=== PATIENT | female | born 1965 | race Caucasian/White ===

== ENCOUNTER 2018-12-08 07:29 | Emergency (ER) | payer MEDICAID ==
[~2018-12-08] VITALS: Ht 157.5 cm; Wt 67.6 kg
[2018-12-08 07:33] VITALS: Ht 157.5 cm; Wt 67.6 kg
[2018-12-08 08:26] LABS: BASOPHIL % 0.2 % (0-2); PLATELET COUNT 310 x10^3mcL (130-400); RED CELL DISTRIBUTION WIDTH 12.7 % (11.5-14.5)
[2018-12-08 08:44] LABS: CALCIUM 9.1 mg/dL (8.5-10.1); CARBON DIOXIDE 26.2 mmol/L (21-32); CHLORIDE SERUM 104 mmol/L (98-107); CREATININE SERUM 0.6 mg/dL (0.6-1.0); GFR1 > 60 mL/min; GLUCOSE SERUM 123 mg/dL (74-106); POTASSIUM SERUM 3.3 mmol/L (3.5-5.1); SODIUM SERUM 141 mmol/L (136-145)
[2018-12-08 08:50] LABS: microscopic required? YES; urine erythrocyte 2+ (NEGATIVE)
[2018-12-08 08:52] LABS: ALBUMIN 3.7 g/dL (3.4-5.0); ALKALINE PHOSPHATASE 139 U/L (46-116); ALT/SGPT 25 U/L (14-59); AST/SGOT 10 U/L (15-37); BILIRUBIN TOTAL 0.92 mg/dL (0.20-1.00); TOTAL PROTEIN, SERUM 7.7 g/dL (6.4-8.2)
[2018-12-08 09:45] VITALS: BP 137/95
== END 2018-12-08 09:45 | disposition home or self-care (01) ==
LOC: ED 07:29
PROVIDERS: Emergency Medicine
DX: K52.89 Other specified noninfective gastroenteritis and colitis (principal); K62.5 Hemorrhage of anus and rectum; I10 Essential (primary) hypertension
CPT/HCPCS: 36415; J7030

== ENCOUNTER 2020-06-02 20:25 | Emergency (ER) | payer MEDICAID ==
[~2020-06-02] VITALS: Ht 160 cm; Wt 63.5 kg
[2020-06-02 20:27] VITALS: Ht 160 cm; Wt 63.5 kg
[2020-06-02 21:07] VITALS: BP 160/96
== END 2020-06-02 21:07 | disposition home or self-care (01) ==
LOC: ED 20:25
DX: U07.1 COVID-19 (principal); I10 Essential (primary) hypertension
CPT/HCPCS: U0003